=== PATIENT | female | born 1995 | race Caucasian/White ===

== ENCOUNTER 2017-12-30 21:37 | Emergency (ER) | payer OTHER ==
[~2017-12-30] VITALS: Ht 157.5 cm; Wt 56.7 kg
[2017-12-30 21:45] VITALS: BP_SYST 153
[2017-12-30] MEDS ORDERED: NACL 0.9% 1,000 ML IV ONE (22:26)
[2017-12-30] MEDS ORDERED: DIPHENHYDRAMINE INJ 50 MG/ML VIAL IVP ONE (22:30)
[2017-12-30] MEDS ORDERED: FAMOTIDINE 20 MG TABLET PO ONE (22:30)
[2017-12-30] MEDS ORDERED: EPINEPHrine 1 MG/ML AMP SUBCUT ONE (22:30)
[2017-12-31 01:26] VITALS: BP_SYST 132
== END 2017-12-31 01:26 | disposition home or self-care (01) ==
LOC: SED 21:37
DX: T78.40XA Allergy, unspecified, initial encounter (principal); L50.0 Allergic urticaria; R03.0 Elevated blood-pressure reading, without diagnosis of hypertension; Z90.49 Acquired absence of other specified parts of digestive tract; X58.XXXA Exposure to other specified factors, initial encounter
CPT/HCPCS: 96372; 96374; 99284; J0171; J1200; J7030

== ENCOUNTER 2018-03-02 12:44 | Emergency (ER) | payer OTHER ==
[~2018-03-02] VITALS: Ht 157.5 cm; Wt 54.9 kg
[2018-03-02 12:45] VITALS: BP_SYST 127
[2018-03-02 14:30] VITALS: BP_SYST 119
[2018-03-02] MEDS ORDERED: BACITRACIN 1 GM OINT TP ONE (14:30)
== END 2018-03-02 14:30 | disposition home or self-care (01) ==
LOC: SED 12:44
DX: S90.02XA Contusion of left ankle, initial encounter (principal); Z90.49 Acquired absence of other specified parts of digestive tract; Z88.1 Allergy status to other antibiotic agents; W17.89XA Other fall from one level to another, initial encounter; Y93.89 Activity, other specified; Y92.89 Other specified places as the place of occurrence of the external cause; Y99.8 Other external cause status
CPT/HCPCS: 99284